=== PATIENT | male | born 1975 | race Two or more races ===

== ENCOUNTER 2020-06-21 14:30 | Emergency (ER) | payer OTHER ==
[~2020-06-21] VITALS: Ht 165.1 cm; Wt 66.5 kg
--- NOTE | 2020-06-21 14:39 | NUR ---
EKG IN TRIAGE.
--- NOTE | 2020-06-21 15:14 | NUR ---
PER PT'S SON THE PT WAS EATING LUNCH ATOUND 1200 AND BEGAN TO FEEL PRESSSURE IN HIS EPIGASTRIC REGION WITH NAUSEA, NO VOMTING. PT DENIES SOB OR PAIN AT THIS TIME. PT EXPERIENCED A SIMIALAR EPISODE AWHILE AGO BUT IT RESOLVED ON ITS OWN. PT DENIES ANY MEDICAL HX.
[2020-06-21 15:49] LABS: BASOPHILS % (AUTO) 0 % (0-1); EOSINOPHILS % (AUTO) 0 % (1-7); LYMPHOCYTES % (AUTO) 16 % (22-44); MEAN CORPUSCULAR HEMOGLOBIN 32.7 pg (27.5-34.5); MEAN CORPUSCULAR HGB CONC 34.6 g/dL (33.2-36.2); MEAN PLATELET VOLUME 7.8 fL (7.4-10.4); MONOCYTES % (AUTO) 10 % (2-9); NEUTROPHILS % (AUTO) 73 % (42-75); PLATELET COUNT 238 x10^3/uL (130-400); RED CELL DISTRIBUTION WIDTH 12.9 % (9.4-14.8)
[2020-06-21 15:52] LABS: MD NO
[2020-06-21 15:59] LABS: ALBUMIN 3.8 g/dL (3.4-5.0); ANION GAP 2 mmol/L (5-15); CALCIUM 8.7 mg/dL (8.5-10.1); CHLORIDE 107 mmol/L (98-107); CREATININE 0.81 mg/dL (0.7-1.3)
[2020-06-21 16:01] LABS: TROPONIN I < 0.015 ng/mL (0.000-0.045)
[2020-06-21 17:00] VITALS: BP 121/77
--- NOTE | 2020-06-21 17:08 | NUR ---
PT REC'VD DISCHARGE INSTRUCTIONS AND EDUCATION. PT HAD NO QUESTIONS. PT AMBULATED TO DC AREA, STEADY GAIT.
== END 2020-06-21 17:11 | disposition home or self-care (01) ==
LOC: ED 16:18
DX: M54.12 Radiculopathy, cervical region (principal); R07.2 Precordial pain; R07.89 Other chest pain; R20.0 Anesthesia of skin; R00.2 Palpitations; R94.31 Abnormal electrocardiogram [ECG] [EKG]
CPT/HCPCS: 36415; 71045; 72050; 80048; 82040; 84484; 85025; 93005; 99285